=== PATIENT | female | born 2000 | race American Indian/Alaskan Native ===

== ENCOUNTER 2020-01-16 10:38 | Emergency (ER) | payer SELFPAY ==
--- NOTE | 2020-01-16 11:37 | XRay Report ---
LEFT FOOT 2 VIEW(S) INDICATION / CLINICAL INFORMATION: injury COMPARISON: None available. FINDINGS: BONES / JOINT(S): Casting material overlying the forefoot slightly obscures evaluation. Allowing for this there are acute fractures through the distal first metatarsal, fourth and fifth digit middle pha langes, and possibly involving the fourth and fifth distal phalanges, as well. Minimal displacement o f the middle phalangeal fractures. No significant displacement of the first metatarsal fracture. 3-4 mm of widening at the medial cuneiform-second metatarsal base. No significant arthritis. SOFT TISSUES: Diffuse forefoot edema. ADDITIONAL FINDINGS: None. IMPRESSION: 1. Acute distal first metatarsal and fourth and fifth middle/distal phalangeal fractures. 2. Mild widening at the medial cuneiform-second metatarsal base suggesting possible Lisfranc injury. Consider further evaluation as warranted. Signer Name: Shadi Stevens MD Signed: 01/16/2020 11:32 AM Workstation Name: [id number]
[2020-01-16] MEDS ORDERED: HYDROcodone/ACETAMINOPHEN 5-325 MG TAB PO ONE (13:28)
[2020-01-16] MEDS ORDERED: DIPHtheria,PERTUSSIS(ACELL),TETANUS VACCINE/PF 0.5 ML VIAL IM ONE (13:28)
[2020-01-16] MEDS ORDERED: ceFAZolin 1 GM VIAL IM ONE (13:58)
--- NOTE | 2020-01-16 14:12 | Emergency Department Report ---
ED Lower Extremity HPI - General Chief Complaint: Extremity Injury, Lower Stated Complaint: FOOT INJURY Time Seen by Provider: 01/16/20 13:21 Source: patient Mode of arrival: Ambulatory Limitations: No Limitations - History of Present Illness Initial Comments: Patient is a 19-year-old female presents emergency room with complaints of a left foot injury that occurred around 7 AM this morning. She states that she was at work when she lost control of the pallet yoan and it fell directly onto her left foot. She states that immediately her foot began to bleed. She has not been ambulatory since the incident secondary to pain. She denies any numbness or weakness. She is able to move the toes. She is unsure of her last tetanus immunization. No past medical history. No allergies to medications. Last menstrual cycle 01/11/2020. - Related Data Previous Rx's Medication Instructions Recorded Last Taken Type HYDROcodone/APAP 5-325 [[place] 1 each PO Q6HR PRN #10 tablet 01/16/20 Unknown Rx 5/325] Ibuprofen [Motrin 600 MG tab] 600 mg PO Q8H PRN #20 tablet 01/16/20 Unknown Rx cephALEXin [Keflex] 500 mg PO QID 7 Days #28 cap 01/16/20 Unknown Rx Allergies Allergy/AdvReac Type Severity Reaction Status Date / Time No Known Allergies Allergy Unverified 01/16/20 10:50 ED Review of Systems ROS: Stated complaint: FOOT INJURY Other details as noted in HPI Comment: All other systems reviewed and negative ED Past Medical Hx - Past Medical History Previous Medical History?: No - Surgical History Past Surgical History?: No - Social History Smoking Status: Never Smoker - Medications Home Medications: Home Medications Medication Instructions Recorded Confirmed Last Taken Type HYDROcodone/APAP 5-325 [[place] 1 each PO Q6HR PRN #10 tablet 01/16/20 Unknown Rx 5/325] Ibuprofen [Motrin 600 MG tab] 600 mg PO Q8H PRN #20 tablet 01/16/20 Unknown Rx cephALEXin [Keflex] 500 mg PO QID 7 Days #28 cap 01/16/20 Unknown Rx ED Physical Exam - General Limitations: No Limitations General appearance: alert, in no apparent distress - Head Head exam: Present: atraumatic, normocephalic - Eye Eye exam: Present: normal appearance - ENT ENT exam: Present: mucous membranes moist - Extremities Exam Extremities exam: Present: other (ttp and edema present to the dorsal foot and toes, ecchymosis present, pt is able to move the toes, decreased ROM of the foot secondary to pain, no ttp of the ankle or tib/fib, neurovascularly intact, brisk cap refill, there is a 1 cm laceration present to the medial surface of the left big toe at the web of the toe, no active bleeding, no obvious foreign body) - Neurological Exam Neurological exam: Present: alert, oriented X3 - Psychiatric Psychiatric exam: Present: normal affect, normal mood - Skin Skin exam: Present: warm, dry ED Course Vital Signs 01/16/20 01/16/20 10:51 14:51 Temperature 98.1 F Pulse Rate 89 91 H Respiratory 16 16 Rate Blood Pressure 138/86 Blood Pressure 130/95 [Left] O2 Sat by Pulse 98 99 Oximetry - Consultations Consultation #1: 01/16/20 15:[address] Macias, ankle senior quality methods specialist regarding patient presentation examination and results, he advised to dress the foot and do not need to attempt to repair the laceration, he advised to place patient in postop shoe and give crutches, and he advised to have patient follow-up in office and give patient Tdap ED Lower Extremity MDM - Radiology Data Radiology results: report reviewed LEFT FOOT 2 VIEW(S) INDICATION / CLINICAL INFORMATION: injury COMPARISON: None available. FINDINGS: BONES / JOINT(S): Casting material overlying the forefoot slightly obscures evaluation. Allowing for this there are acute fractures through the distal first metatarsal, fourth and fifth digit middle phalanges, and possibly involving the fourth and fifth distal phalanges, as well. Minimal displacement of the middle phalangeal fractures. No significant displacement of the first metatarsal fracture. 3-4 mm of widening at the medial cuneiform-second metatarsal base. No significant arthritis. SOFT TISSUES: Diffuse forefoot edema. ADDITIONAL FINDINGS: None. IMPRESSION: 1. Acute distal first metatarsal and fourth and fifth middle/distal phalangeal fractures. 2. Mild widening at the medial cuneiform-second metatarsal base suggesting possible Lisfranc injury. Consider further evaluation as warranted. Signer Name: Shadi Stevens MD Signed: 01/16/2020 10:32 AM Workstation Name: [id number] - Medical Decision Making Patient is a 19-year-old female presents emergency room with complaints of a left foot injury that occurred around 7 AM this morning. She states that she was at work when she lost control of the pallet yoan and it fell directly onto her left foot. She states that immediately her foot began to bleed. She has not been ambulatory since the incident secondary to pain. She denies any numbness or weakness. She is able to move the toes. She is unsure of her last tetanus immunization. No past medical history. No allergies to medications. Last menstrual cycle 01/11/2020. on exam: ttp and edema present to the dorsal foot and toes, ecchymosis present, pt is able to move the toes, decreased ROM of the foot secondary to pain, no ttp of the ankle or tib/fib, neurovascularly intact, brisk cap refill, there is a 1 cm laceration present to the medial surface of the left big toe at the web of the toe, no active bleeding, no obvious foreign body. XR left foot: IMPRESSION: 1. Acute distal first metatarsal and fourth and fifth middle/distal phalangeal fractures. 2. Mild widening at the medial cuneiform-second metatarsal base suggesting possible Lisfranc injury. Consider further evaluation as warranted. Discussed case with Dr. Harris, ER attending who advised to consult specialist. Patient given Ancef, Tdap, [place] while in the emergency department. Spoke with Dr. Macias, ankle senior quality methods specialist regarding patient presentation examination and results, he advised to dress the foot and do not need to attempt to repair the laceration, h e advised to place patient in postop shoe and give crutches, and he advised to have patient follow-up in office and give patient Tdap. Dressing placed by bareback rider on the foot, patient placed in Ortho shoe, remained neurovascularly intact, given crutches and crutch instructions by bareback rider. Patient given prescription for Keflex, ibuprofen, [place]. Advised patient Please take medication as prescribed. Do not drive or operate the machinery while taking pain medication. Do not bear weight on the leg. Please follow-up with Dr. Macias within the next 2 to 3 days. Return to emergency room immediately for any new or worsening symptoms. - Differential Diagnosis Strain, sprain, fracture, dislocation, abrasion, contusion, laceration Critical care attestation.: If time is entered above; I have spent that time in minutes in the direct care of this critically ill patient, excluding procedure time. ED Disposition Clinical Impression: Multiple fractures of foot Qualifiers: Encounter type: initial encounter Fracture type: open Laterality: left Qualified Code(s): S92.902B - Unspecified fracture of left foot, initial encounter for open fracture Laceration of toe Qualifiers: Encounter type: initial encounter Toe: great toe Damage to nail status: without damage Foreign body presence: without foreign body Laterality: left Qualified Code(s): S91.112A - Laceration without foreign body of left great toe without damage to nail, initial encounter Disposition: TO HOME OR SELFCARE Is pt being admited?: No Does the pt Need Aspirin: No Condition: Stable Instructions: Toe Fracture (ED), Foot Fracture in Adults (ED) Additional Instructions: Please take medication as prescribed. Do not drive or operate the machinery while taking pain medication. Do not bear weight on the leg. Please follow-up with Dr. Macias within the next 2 to 3 days. Return to emergency room immediately for any new or worsening symptoms. Prescriptions: cephALEXin [Keflex] 500 mg PO QID 7 Days #28 cap Ibuprofen [Motrin 600 MG tab] 600 mg PO Q8H PRN #20 tablet PRN Reason: Pain, Moderate (4-6) HYDROcodone/APAP 5-325 [[place] 5/325] 1 each PO Q6HR PRN #10 tablet PRN Reason: Pain , Severe (7-10) Referrals: PRIMARY CARE, [Primary Care Provider] - 2-3 Days LALIT MACAIS DPM [Staff Physician] - 2-3 Days Time of Disposition: 15:22 Print Language: ITALIAN
[2020-01-16] MEDS ORDERED: WATER FOR INJ Sterile (PF) 10 ML ONE (14:18)
[2020-01-16 14:52] VITALS: BP 130/95
== END 2020-01-16 15:52 | disposition home or self-care (01) ==
LOC: ED 10:38
DX: S92.902A Unspecified fracture of left foot, initial encounter for closed fracture (principal); S91.112A Laceration without foreign body of left great toe without damage to nail, initial encounter; Z79.899 Other long term (current) drug therapy; W18.30XA Fall on same level, unspecified, initial encounter; Y93.89 Activity, other specified; Y92.89 Other specified places as the place of occurrence of the external cause; Y99.0 Civilian activity done for income or pay
CPT/HCPCS: 73620; 90471; 90715; 96372; 99283; J0690